=== PATIENT | female | born 1985 | race Caucasian/White ===

== ENCOUNTER 2020-08-16 13:08 | Outpatient (CLI) | payer OTHER ==
--- NOTE | 2020-08-16 14:05 | MRI ---
MRI LUMBAR SPINE WITHOUT CONTRAST: INDICATION: Lumbar pain with radiculopathy. FINDINGS: The lumbar vertebrae maintain normal height and alignment. Disk spaces are normally maintained. L5 is transitional. There are rudimentary ribs at T12. No significant disk bulge or protrusion seen at L1-2, L2-3, or L3-4 levels. No central canal or fora melly stenosis at any of these levels. At L4-5, there is an annular fissure with a small central protrusion indenting the thecal sac central ly. Minimal facet hypertrophy. Mild central canal stenosis. Probable slight displacement of the tr aversing left L5 nerve root. No significant foraminal stenosis. L5-S1 shows smaller disk space at this transitional vertebra. No disk bulge or protrusion. IMPRESSION: 1. L5 is transitional. 2. There is a small disk protrusion at L4-5 as described above. POS: OFF
== END 2020-08-16 13:09 | disposition home or self-care (01) ==
LOC: TBSIIMAG 13:08
PROVIDERS: ATTEND Neurological Surgery
DX: M51.16 Intervertebral disc disorders with radiculopathy, lumbar region (principal)
CPT/HCPCS: 72148